=== PATIENT | male | born 1985 | race American Indian/Alaskan Native ===

== ENCOUNTER 2019-10-06 18:56 | Emergency (ER) | payer OTHER ==
[2019-10-06] MEDS ORDERED: IBUPROFEN 800 MG TAB PO ONE (20:22)
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
[2019-10-06 21:57] VITALS: BP 144/79
== END 2019-10-06 22:04 | disposition home or self-care (01) ==
LOC: ED 18:56
DX: S16.1XXA Strain of muscle, fascia and tendon at neck level, initial encounter (principal); S39.012A Strain of muscle, fascia and tendon of lower back, initial encounter; Z79.899 Other long term (current) drug therapy; V49.49XA Driver injured in collision with other motor vehicles in traffic accident, initial encounter; Y93.89 Activity, other specified; Y92.410 Unspecified street and highway as the place of occurrence of the external cause; Y99.8 Other external cause status
CPT/HCPCS: 72040; 72100